=== PATIENT | male | born 1980 | race Caucasian/White ===

== ENCOUNTER 2017-03-12 11:33 | Emergency (ER) | payer SELFPAY ==
[~2017-03-12] VITALS: Ht 180.3 cm; Wt 74.5 kg
[2017-03-12 11:37] VITALS: Ht 180.3 cm; Wt 74.5 kg
[2017-03-12] MEDS ORDERED: LIDOCAINE 1% (MDV) 20 ML INJ SC ONE (12:00)
[2017-03-12] MEDS ORDERED: AZITHROMYCIN 250 MG TAB PO ONE (12:00)
[2017-03-12] MEDS ORDERED: CEFTRIAXONE 500 MG INJ IM ONE (12:00)
--- NOTE | 2017-03-12 12:01 | ERD ---
ER Documentation Chief Complaint Date/Time DATE: 03/12/17 TIME: 11:59 Chief Complaint purulent discharge from penis x4 days HPI 28-year-old male complains of purulent discharge from the penis for last 4 days. He had recent intercourse with his girlfriend denies any known STD exposures. He denies any fevers, vomiting, shortness of the chest pain. Denies any testicular pain or swelling. ROS All systems reviewed and are negative except as per history of present illness. PMhx/Soc Medical and Surgical Hx: pt denies Medical Hx, pt denies Surgical Hx Hx Alcohol Use: No Hx Substance Use: No Smoking Status: Never smoker Physical Exam Vitals Vital Signs Date Time Temp Pulse Resp B/P Pulse Ox O2 Delivery O2 Flow Rate FiO2 03/12/17 11:37 98.7 108 20 117/72 96 Physical Exam Const: [] Alert, [id number]. Head: Atraumatic Eyes: Normal Conjunctiva ENT: Normal External Ears, Nose and Mouth. Neck: Full range of motion..~ No meningismus. Resp: Clear to auscultation bilaterally Cardio: Regular rate and rhythm, no murmurs Abd: Soft, non tender, non distended. Normal bowel sounds. Genital exam shows purulent discharge from the penis. Testicles are nontender and normal size bilaterally descended. Skin: No petechiae or rashes Back: No midline or flank tenderness Ext: No cyanosis, or edema Neur: Awake and alert Psych: Normal Mood and Affect Procedures/MDM Patient presents with signs and symptoms of acute urethritis without evidence of testicular torsion, abscess, acute abdomen. Patient was given Rocephin 500 mg IM and Zithromax 1 g by mouth daily and urine was sent for chlamydia and gonorrhea. Patient was advised to have partners treated, sustained from unprotected sex for the next week and recheck otherwise for new or worsening symptoms with primary care doctor. Departure Diagnosis: Primary Impression: Urethritis Condition: Stable Patient Instructions: Urethritis, Male (Gc Vs. Chlam) Additional Instructions: Recommend have partners treated. No unprotected sex for the next week. Recheck otherwise for new or worsening symptoms. TEE LAMB MD Mar 12, 2017 12:00
== END 2017-03-12 12:50 | disposition home or self-care (01) ==
LOC: FTE 11:33
DX: N34.2 Other urethritis (principal)
CPT/HCPCS: 96372; 99284; J0696